=== PATIENT | male | born 1990 | race Caucasian/White ===

== ENCOUNTER 2016-12-04 15:22 | Emergency (ER) | payer MEDICAID, OTHER ==
[~2016-12-04] VITALS: Ht 170.2 cm; Wt 68.2 kg
[2016-12-04 15:25] VITALS: BP 116/71
[2016-12-04] MEDS ORDERED: PENI500T (15:28)
[2016-12-04] MEDS ORDERED: TRAM50TA2 (15:28)
[2016-12-04] MEDS ORDERED: TETRACAINE 0.5% OPHTH SOLN 4ML OD ONE (15:30)
[2016-12-04] MEDS ORDERED: FLUORESCEIN OPHTH 1 MG STRIP OD ONE (15:30)
[2016-12-04] MEDS ORDERED: GENTAMICIN 0.3% OPHTH SOL 5 ML BTL OD ONE (15:45)
[2016-12-04] MEDS ORDERED: ADACEL/BOOSTRIX VACCINE (DIPHTH/PERTUSS/ACELL/TETANUS)0.5ML SYR (90715) IM ONE (15:45)
[2016-12-04] MEDS ORDERED: GENT3OPD OD (15:47)
== END 2016-12-04 16:00 | disposition home or self-care (01) ==
LOC: M ED 15:22
DX: S05.01XA Injury of conjunctiva and corneal abrasion without foreign body, right eye, initial encounter (principal); X58.XXXA Exposure to other specified factors, initial encounter; Y92.099 Unspecified place in other non-institutional residence as the place of occurrence of the external cause; Y93.89 Activity, other specified; Y99.9 Unspecified external cause status; F17.200 Nicotine dependence, unspecified, uncomplicated; Z88.8 Allergy status to other drugs, medicaments and biological substances

== ENCOUNTER 2017-07-26 18:49 | Emergency (ER) | payer SELFPAY, OTHER ==
[2017-07-26 21:46] LABS: INFLUENZA A AMPLIFICATION POSITIVE (NEGATIVE); INFLUENZA B AMPLIFICATION NEGATIVE (NEGATIVE)
== END 2017-07-26 22:13 | disposition home or self-care (01) ==
LOC: M ED 18:49
DX: J09.X2 Influenza due to identified novel influenza A virus with other respiratory manifestations (principal); F17.210 Nicotine dependence, cigarettes, uncomplicated; Z88.1 Allergy status to other antibiotic agents
CPT/HCPCS: 87502

== ENCOUNTER 2018-03-11 17:27 | Emergency (ER) | payer SELFPAY | END 2018-03-11 18:56 | disposition home or self-care (01) | LOC: M ED 17:27 | DX: S83.91XA Sprain of unspecified site of right knee, initial encounter (principal); X50.9XXA Other and unspecified overexertion or strenuous movements or postures, initial encounter; Y92.89 Other specified places as the place of occurrence of the external cause | CPT/HCPCS: 73564 ==

== ENCOUNTER 2018-06-11 13:54 | Emergency (ER) | payer MEDICAID, SELFPAY ==
[~2018-06-11] VITALS: Ht 170.2 cm; Wt 70.5 kg
[~2018-06-11 13:54] MED LIST: GENT3OPD OD; NAPR-50 PO; OSEL75CA PO; PENI500T; TRAM50TA2; TYLE325T5 PO
[2018-06-11] MEDS ORDERED: hydrOXYzine 50 MG TAB PO STA (14:09)
[2018-06-11 15:07] LABS: HEMATOCRIT 46.6 % (42.0-52.0); HEMOGLOBIN 15.8 g/dl (13.5-17.5); MEAN CORPUSCULAR HEMOGLOBIN 29.1 pg (27.0-33.0); MEAN CORPUSCULAR HGB CONC 33.9 g/dl (32.0-36.5); MEAN CORPUSCULAR VOLUME 85.8 fl (80.0-96.0); PLATELET COUNT, AUTOMATED 221 10^3/uL (150-450); RED BLOOD COUNT 5.43 10^6/uL (4.30-6.10); WHITE BLOOD COUNT 12.2 10^3/uL (4.0-10.0)
[2018-06-11] MEDS ORDERED: NICOTINE 21MG/24HR 1 EA TRANSDERMAL TD ONE (15:30)
[2018-06-11 15:59] LABS: AMPHETAMINES LEVEL URINE NEGATIVE (NEGATIVE); BARBITURATES URINE NEGATIVE (NEGATIVE); BENZODIAZEPINES URINE NEGATIVE (NEGATIVE); CANNABINOIDS URINE NEGATIVE (NEGATIVE); COCAINE METABOLITE URINE NEGATIVE (NEGATIVE); METHADONE URINE NEGATIVE (NEGATIVE); OPIATES URINE NEGATIVE (NEGATIVE)
[2018-06-11 16:00] LABS: PHENCYCLIDINE URINE NEGATIVE (NEGATIVE)
[2018-06-11 16:17] LABS: BLOOD UREA NITROGEN 11 MG/DL (7-18); CREATININE FOR GFR 1.07 MG/DL (0.70-1.30); GLOMERULAR FILTRATION RATE > 60.0 (>60); GLUCOSE, FASTING 107 MG/DL (70-100)
[2018-06-11 16:18] LABS: ALBUMIN 4.2 GM/DL (3.2-5.2); ALT/SGPT 23 U/L (12-78); BILIRUBIN,DIRECT 0.1 MG/DL (0.0-0.2); BILIRUBIN,TOTAL 0.4 MG/DL (0.2-1.0); CALCIUM LEVEL 8.5 MG/DL (8.5-10.1); CARBON DIOXIDE LEVEL 31 MEQ/L (21-32); CHLORIDE LEVEL 105 MEQ/L (98-107); ETHYL ALCOHOL (ETHANOL) < 0.003 % (0.000-0.010); POTASSIUM SERUM 4.7 MEQ/L (3.5-5.1); SODIUM LEVEL 140 MEQ/L (136-145); TOTAL PROTEIN 7.6 GM/DL (6.4-8.2)
[2018-06-11 16:19] LABS: ACETAMINOPHEN LEVEL < 2.0 UG/ML (10.0-30.0); SALICYLATE LEVEL < 1.7 MG/DL (5.0-30.0)
[2018-06-11 21:40] VITALS: BP 129/89
--- NOTE | 2018-06-12 08:43 | ECGEPIP ---
Stationary ECG Study [facility] - ED Test Date: 2018-06-11 Pat Name: DEE DEE JONES Department: Room: - Gender: M Certified Physical Therapist Assistant: ct : 1990 Requested By: Aysha Dillon Order Number: [id number] Reading MD: Marc Bauer Measurements Intervals Marcy Rate: 55 P: 53 NV: 171 QRS: 48 QRSD: 96 T: 8 QT: 394 QTc: 378 Interpretive Statements SINUS BRADYCARDIA WITH SINUS ARRHYTHMIA POSSIBLE RIGHT VENTRICULAR CONDUCTION DELAY NONSPECIFIC T-WAVE ABNORMALITY NO OLD ECG FOR COMPARISON Electronically Signed On 06-12-2018 8:43:46 EST by Marc Bauer
== END 2018-06-11 21:45 | disposition short-term general hospital (02) ==
LOC: M ED 13:54
DX: R45.851 Suicidal ideations (principal); T71.162A Asphyxiation due to hanging, intentional self-harm, initial encounter; Y92.9 Unspecified place or not applicable; Y93.9 Activity, unspecified; R00.1 Bradycardia, unspecified; Z88.8 Allergy status to other drugs, medicaments and biological substances
CPT/HCPCS: 80048; 80076; 80307; 84443; 85027; 93005; 99285; G0480

== ENCOUNTER 2018-07-09 17:25 | Emergency (ER) | payer OTHER, SELFPAY ==
[~2018-07-09] VITALS: Ht 170.2 cm; Wt 70.5 kg
[2018-07-09 17:26] VITALS: BP 122/79
[2018-07-09] MEDS ORDERED: IBUPROFEN 600 MG TAB PO ONE (17:45)
--- NOTE | 2018-07-09 18:14 | REP ---
Nickel: Trauma. Technique: AP, lateral, bilateral oblique views of the right hand. Findings: No acute fracture or dislocation appreciated. Skeletal structures, joint spaces, and surrounding soft tissues appear grossly normal. Mild swelling cannot be excluded. No subcutaneous emphysema or radiodense foreign body. Impression: No acute fracture or dislocation identified. Electronically Signed by Jeff Carrizales MD 07/09/2018 06:06 P
== END 2018-07-09 17:56 | disposition home or self-care (01) ==
LOC: M ED 17:25
DX: S60.221A Contusion of right hand, initial encounter (principal); W22.09XA Striking against other stationary object, initial encounter; Y92.009 Unspecified place in unspecified non-institutional (private) residence as the place of occurrence of the external cause; F17.200 Nicotine dependence, unspecified, uncomplicated; Z88.1 Allergy status to other antibiotic agents

== ENCOUNTER 2018-08-22 20:53 | Emergency (ER) | payer OTHER ==
[~2018-08-22] VITALS: Ht 170.2 cm; Wt 68.2 kg
[2018-08-22 20:53] VITALS: BP 131/81
[~2018-08-22 20:53] MED LIST changes: +GENT0.3S36 OD; -GENT3OPD OD; -NAPR-50 PO; +NAPR-837 PO
== END 2018-08-22 22:04 | disposition left against medical advice (07) ==
LOC: M ED 20:53
DX: Z53.21 Procedure and treatment not carried out due to patient leaving prior to being seen by health care provider (principal)

== ENCOUNTER → 2018-12-22 | Outpatient (CLI) | payer OTHER | LOC: M OUTALCOH 09:22 | PROVIDERS: ATTEND Psychiatry & Neurology Psychiatry | DX: F11.20 Opioid dependence, uncomplicated (principal); F14.10 Cocaine abuse, uncomplicated ==

== ENCOUNTER 2018-12-30 14:09 | Emergency (ER) | payer OTHER ==
[~2018-12-30] VITALS: Ht 170.2 cm; Wt 68.2 kg
--- NOTE | 2018-12-30 15:14 | REP ---
CT of the brain without IV contrast: Comparison is 08/17/2007. There is no epidural or subdural hematoma. There is no intraparenchymal or subarachnoid hemorrhage. There is no edema, mass effect or midline shift. The ventricles are normal size and midline. The cortical stripe is unremarkable. The visualized paranasal sinuses and mastoid air cells are clear. Impression: There is no acute intracranial hemorrhage. There is no edema, mass effect or midline shift. Essentially negative CT study of the brain. Electronically Signed by Nate Narvaez MD 12/30/2018 03:06 P
--- NOTE | 2018-12-30 15:18 | REP ---
Maxillofacial CT for trauma: There is no nasal bone fracture. There is no orbit fracture. There is no zygoma fracture. There are no air-fluid levels in the paranasal sinuses. The mastoid air cells are clear. There is no mandible fracture. 8. The ocular rims and lenses are unremarkable. Impression: No facial bone fracture. Electronically Signed by Nate Narvaez MD 12/30/2018 03:10 P
[2018-12-30] MEDS ORDERED: KETOROLAC 30 MG/ML VIAL (J1885) IM ONE (16:00)
[2018-12-30] MEDS ORDERED: IBUP-1022 PO (16:08)
[2018-12-30 16:34] VITALS: BP 116/72
== END 2018-12-30 16:37 | disposition home or self-care (01) ==
LOC: M ED 14:09
DX: S09.90XA Unspecified injury of head, initial encounter (principal); R51 Headache; Y04.8XXA Assault by other bodily force, initial encounter; Y92.149 Unspecified place in prison as the place of occurrence of the external cause; Z88.1 Allergy status to other antibiotic agents
CPT/HCPCS: 70450; 70486; 80047; 96372; 99283; J1885

== ENCOUNTER → 2019-06-11 | Outpatient (CLI) | payer SELFPAY ==
[~2019-06-11] MED LIST changes: +IBUP-1022 PO
== END ==
LOC: M OUTALCOH 08:05
PROVIDERS: ATTEND Psychiatry & Neurology Addiction Medicine
DX: F11.20 Opioid dependence, uncomplicated (principal)

== ENCOUNTER 2019-07-26 21:49 | Emergency (ER) | payer MEDICAID, SELFPAY ==
[~2019-07-26] VITALS: Ht 170.2 cm; Wt 78.6 kg
[2019-07-26] MEDS ORDERED: NS 1,000 ML IV ONE (22:45)
[2019-07-26 22:52] LABS: BASO % 0.5 % (0.0-1.0); EOS # 0.1 10^3/uL (0.0-0.5); EOS % 2.2 % (0.0-3.0); HEMOGLOBIN 13.8 g/dl (13.5-17.5); LYMPH # 1.4 10^3/uL (1.5-5.0); LYMPH % 21.6 % (24.0-44.0); MEAN CORPUSCULAR HEMOGLOBIN 28.6 pg (27.0-33.0); MEAN CORPUSCULAR HGB CONC 34.5 g/dl (32.0-36.5); MONO # 0.5 10^3/uL (0.0-0.8); MONO % 7.9 % (0.0-5.0); NEUTROPHILS # 4.4 10^3/uL (1.5-8.5); NEUTROPHILS % 67.6 % (36.0-66.0); PLATELET COUNT, AUTOMATED 192 10^3/uL (150-450); RED BLOOD COUNT 4.82 10^6/uL (4.30-6.10); WHITE BLOOD COUNT 6.4 10^3/uL (4.0-10.0)
[2019-07-26] MEDS ORDERED: ISOVUE-370 76% 100ML VIAL (Q9967) As Ordered ONE (23:05)
[2019-07-26 23:21] LABS: ALBUMIN 3.6 GM/DL (3.2-5.2); ALT/SGPT 33 U/L (12-78); BILIRUBIN,DIRECT < 0.1 MG/DL (0.0-0.2); BILIRUBIN,TOTAL 0.3 MG/DL (0.2-1.0); BLOOD UREA NITROGEN 14 MG/DL (7-18); CALCIUM LEVEL 8.7 MG/DL (8.5-10.1); CARBON DIOXIDE LEVEL 30 MEQ/L (21-32); CHLORIDE LEVEL 104 MEQ/L (98-107); CREATININE FOR GFR 1.21 MG/DL (0.70-1.30); GLOMERULAR FILTRATION RATE > 60.0 (>60); GLUCOSE, FASTING 108 MG/DL (70-100); LIPASE 52 U/L (73-393); POTASSIUM SERUM 3.8 MEQ/L (3.5-5.1); SODIUM LEVEL 138 MEQ/L (136-145); TOTAL PROTEIN 7.3 GM/DL (6.4-8.2)
[2019-07-27 01:16] VITALS: BP 114/56
[2019-07-27] MEDS ORDERED: COLA100C5 PO (01:17)
[2019-07-27] MEDS ORDERED: GLYCERIN ADULT SUPP PR ONE (01:30)
[2019-07-27] MEDS ORDERED: MAGNESIUM CITRATE 300 ML BTL PO ONE (01:30)
--- NOTE | 2019-07-27 08:50 | REP ---
CT abdomen pelvis with IV contrast: Repeat dictation. History: Generalized abdominal pain with guarding. Preliminary report is provided at the time of exam by Siddhartha gonzalez. CT contrast dose: 100 ml of intravenous Isovue 370. CT findings: Digital preliminary date night sitter radiograph is unremarkable. There is formed stool throughout the colon. The lung bases are clear on axial CT images. The liver and the spleen are normal in size homogeneous in texture. No adrenal lesion is seen. No abnormalities noted in the gallbladder or the pancreas. The kidneys enhance symmetrically and are morphologically intact. There are two right renal arteries. Urinary bladder, seminal vesicles and prostate are unremarkable. There is moderate formed stool throughout the colon. No colonic distension is seen. No small bowel dilation is seen. Normal size non-inflamed appendix is seen in the right mid pelvis. No free fluid or free intraperitoneal air. No abdominal wall defect or bony destructive lesion is seen. Impression: Negative CT study abdomen and pelvis. Moderate colonic stool. No acute abnormality. Electronically Signed by Lebron Ward MD 07/27/2019 08:41 A
== END 2019-07-27 01:32 | disposition home or self-care (01) ==
LOC: M ED 21:49
DX: K59.00 Constipation, unspecified (principal); R11.2 Nausea with vomiting, unspecified; F41.9 Anxiety disorder, unspecified; F32.9 Major depressive disorder, single episode, unspecified; F17.200 Nicotine dependence, unspecified, uncomplicated; Z88.8 Allergy status to other drugs, medicaments and biological substances
CPT/HCPCS: 74177; 80048; 80076; 81001; 83690; 85025; 87486; 87581; 87633; 87798; 96360; 96361; 99284; Q9967

== ENCOUNTER → 2019-07-31 | Outpatient (CLI) | payer MEDICAID ==
[~2019-07-31] MED LIST changes: +COLA100C5 PO
[2019-07-31 11:59] LABS: BASO % 0.5 % (0.0-1.0); EOS # 0.2 10^3/uL (0.0-0.5); EOS % 3.3 % (0.0-3.0); HEMATOCRIT 41.9 % (42.0-52.0); LYMPH # 1.6 10^3/uL (1.5-5.0); LYMPH % 25.1 % (24.0-44.0); MEAN CORPUSCULAR HEMOGLOBIN 28.2 pg (27.0-33.0); MEAN CORPUSCULAR HGB CONC 33.4 g/dl (32.0-36.5); MEAN CORPUSCULAR VOLUME 84.3 fl (80.0-96.0); MONO # 0.4 10^3/uL (0.0-0.8); MONO % 6.1 % (0.0-5.0); NEUTROPHILS # 4.2 10^3/uL (1.5-8.5); NEUTROPHILS % 64.7 % (36.0-66.0); PLATELET COUNT, AUTOMATED 204 10^3/uL (150-450); RED BLOOD COUNT 4.97 10^6/uL (4.30-6.10); WHITE BLOOD COUNT 6.4 10^3/uL (4.0-10.0)
[2019-07-31 12:24] LABS: ALBUMIN 3.8 GM/DL (3.2-5.2); ALT/SGPT 27 U/L (12-78); BILIRUBIN,TOTAL 0.2 MG/DL (0.2-1.0); BLOOD UREA NITROGEN 13 MG/DL (7-18); CARBON DIOXIDE LEVEL 29 MEQ/L (21-32); CHLORIDE LEVEL 105 MEQ/L (98-107); CREATININE FOR GFR 1.21 MG/DL (0.70-1.30); GLOMERULAR FILTRATION RATE > 60.0 (>60); GLUCOSE, FASTING 99 MG/DL (70-100); POTASSIUM SERUM 4.6 MEQ/L (3.5-5.1); SODIUM LEVEL 138 MEQ/L (136-145); TOTAL PROTEIN 7.5 GM/DL (6.4-8.2)
[2019-07-31 13:33] LABS: APPEARANCE, URINE CLEAR (CLEAR); BACTERIA, URINE AUTO NEGATIVE (NEGATIVE); BILIRUBIN, URINE AUTO NEGATIVE (NEGATIVE); BLOOD, URINE BLOOD NEGATIVE (NEGATIVE); COLOR, URINE YELLOW (YELLOW); GLUCOSE, URINE (UA) AUTO NEGATIVE (NEGATIVE); KETONE, URINE AUTO NEGATIVE (NEGATIVE); LEUKOCYTE ESTERASE, URINE AUTO NEGATIVE (NEGATIVE); MUCUS, URINE SMALL (NEGATIVE); NITRITE, URINE AUTO NEGATIVE (NEGATIVE); PROTEIN, URINE AUTO NEGATIVE (NEGATIVE); RBC, URINE AUTO 2 /HPF (0-3); SPECIFIC GRAVITY URINE AUTO 1.028 (1.002-1.035); SQUAMOUS EPITHELIAL CELL UR AU 0 /HPF (0-6); UROBILINOGEN, URINE AUTO 0.2 mg/dL (0.0-2.0); WBC, URINE AUTO 0 /HPF (0-3)
[2019-08-01 08:38] LABS: HEPATITIS B SURFACE ANTIGEN NEGATIVE (NEGATIVE)
[2019-08-01 09:06] LABS: HEPATITIS C VIRUS ABY INDEX 0.1 INDEX (<0.8)
[2019-08-01 09:08] LABS: HEPATITIS A ANTIBODY IGM NEGATIVE (NEGATIVE)
[2019-08-01 09:21] LABS: HEPATITIS B CORE ANTIBODY IGM NEGATIVE (NEGATIVE)
== END ==
LOC: M LAB 11:22
PROVIDERS: ATTEND Physician Assistant Medical
DX: Z02.2 Encounter for examination for admission to residential institution (principal)